=== PATIENT | male | born 1965 | race Caucasian/White ===

== ENCOUNTER 2017-07-19 14:08 | Emergency (ER) | payer BC ==
[~2017-07-19 14:08] MED LIST: ACE325 PO; ACE500 PO; CLON-294 PO; DIA10 PO; DIA5 PO; HYDR-4308 PO; IBUP800T37 PO; KET10 PO; LOR5/325 PO; METH-280 PO; NAPR500T31 PO; NO ROUTINE MEDS; OXYC-865 PO; OXYC-869 PO; OXYC1TAB54 PO; PER PO; QUET300T18 PO; SULF-198 PO
--- NOTE | 2017-07-19 14:36 | ER Report ---
History and Physical Time Seen By MD: 14:36 HPI/ROS CHIEF COMPLAINT: Right shoulder pain HISTORY OF PRESENT ILLNESS: 52-year-old male patient presents to emergency room with complaint of right shoulder pain. Patient states that he was getting up this morning and stretched and felt a pop in his right shoulder. He states since then he's noticed that the bicep has been loose. He believes that he is torn his biceps tendon. Patient states he recently had surgery to repair his biceps tendon within the last 6 months. He states that was done by Dr. Keane. Patient states that he has pain to the right shoulder. He states he is not taking any medication for this. He denies any weakness in the right hand. Patient states that he does have some numbness to the right hand. REVIEW OF SYSTEMS: Respiratory: No cough, no dyspnea. Cardiovascular: No chest pain, no palpitations. Gastrointestinal: No vomiting, no abdominal pain. Musculoskeletal: As noted above Allergies: Coded Allergies: tramadol HCl (Verified Allergy, Mild, HIVES, 07/19/17) morphine (Verified Allergy, Unknown, 07/19/17) Home Meds Reported Medications Clonazepam (CLONAZEPAM) 1 Mg Tablet 07/19/17 Discontinued Reported Medications Quetiapine Fumarate (SEROQUEL) 300 Mg Tablet, 300 MG PO QHS 06/21/14 Clonazepam (KLONOPIN) 2 Mg Tablet, 2 MG PO QHS, #7 TAB TAKE ONE TABLET BY MOUTH TWICE A DAY 06/21/14 Discontinued Scripts Naproxen (NAPROXEN) 500 Mg Tablet, 500 MG PO BID for 7 Days, #14 TAB Prov:MADELAINE ISBELL MD 01/19/17 Methocarbamol (METHOCARBAMOL) 750 Mg Tablet, 1500 MG PO QID Y for MUSCLE SPASMS for 7 Days, #30 TAB Prov:MADELAINE ISBELL MD 01/19/17 Oxycodone Hcl/Acetaminophen (PERCOCET 5-325 MG TABLET) 1 Each Tablet, 1 EACH PO Q4H for PAIN, #20 TAB 0 Refills Prov:DOROTA GARNER MD 03/31/16 Ibuprofen (IBUPROFEN) 800 Mg Tablet, 1 TAB PO Q8H Y for PAIN, #30 TAB Prov:HENNY GUARDADO MD 06/20/15 Oxycodone Hcl/Acetaminophen (PERCOCET 5-325 MG TABLET) 1 Each Tablet, 1 EACH PO Q4-6H Y for PAIN, #20 Prov:HENNY GUARDADO MD 06/20/15 Ibuprofen (IBUPROFEN) 800 Mg Tablet, 1 TAB PO Q8H, #30 Prov:ALONZO DALTON 11/14/14 Past Medical/Surgical History Patient has a past medical history of seizures, back fracture, necrotizing fasciitis. Patient has surgical history of back surgery, multiple surgeries arms, partial dictations of multiple fingers. Reviewed Nurses Notes: Yes Hx Smoking: Yes (PPD) Smoking Status: Current: Every Day Smoker Exposure to Second Hand Smoke?: Yes Hx Substance Use Disorder: No Hx Alcohol Use: No Constitutional Vital Sign - Last 24 Hours 07/19/17 07/19/17 14:10 15:55 Temp 97.6 Pulse 94 94 Resp 16 16 B/P (MAP) 129/90 118/84 (95) Pulse Ox 94 94 O2 Delivery Room Air Room Air Physical Exam General Appearance: The patient is alert, has no immediate need for airway protection and no current signs of toxicity. Respiratory: Chest is non tender, lungs are clear to auscultation. Cardiac: regular rate and rhythm Gastrointestinal: Abdomen is soft and non tender, no masses, bowel sounds normal. Musculoskeletal: Extremities have full range of motion and are non tender. Patient does have some laxity in the right bicep muscle, decreased sensation to the radial median and ulnar nerves, patient has full range of motion with his hand. Skin: No rashes or lesions. DIFFERENTIAL DIAGNOSIS: After history and physical exam differential diagnosis was considered for biceps tendon rupture, shoulder strain, shoulder fracture. Medical Decision Making EKG/Imaging Imaging HUMERUS RIGHT COMPARISONS: None. ADDITIONAL PERTINENT HISTORY: Arm pain FINDINGS: Osseous structures: Negative. Joint spaces: Negative. Surrounding soft tissues: Negative. IMPRESSION: Normal views of the right humerus. Report Dictated By: Germán Bojorquez MD at 07/19/2017 3:34 PM Report E-Signed By: Germán Bojorquez MD at 07/19/2017 3:35 PM SHOULDER MIN 2 VIEWS RIGHT COMPARISONS: None. ADDITIONAL PERTINENT HISTORY: Arm pain FINDINGS: Osseous structures: Negative. Joint spaces: Negative. Surrounding soft tissues: Negative. IMPRESSION: Normal views of the right shoulder. Report Dictated By: Germán Bojorquez MD at 07/19/2017 3:34 PM Report E-Signed By: Germán Bojorquez MD at 07/19/2017 3:34 PM ED Course/Re-evaluation ED Course Patient was admitted to an exam room, history of physical or obtained. Differential diagnoses were considered. On examination patient did have laxity in the proximal biceps. X-rays done of the right shoulder as well as right humerus. Those were negative aside anticipate. I believe that we have a rupture of the proximal biceps tendon. We will go ahead and place him in a sling and have him follow-up with [facility]. I discussed findings with patient. We will go ahead and have him continue with the hydrocodone he was prescribed on 07/14. He is follow-up with Dr. Keane,: Him on Friday to make an appointment. The patient verbalized understanding and agreement with plan. Decision to Disposition Date: July 19, 2017 Decision to Disposition Time: 15:52 Depart Departure Latest Vital Signs Vital Signs Date Time Temp Pulse Resp B/P (MAP) Pulse Ox O2 Delivery O2 Flow Rate FiO2 07/19/17 15:55 94 16 118/84 (95) 94 Room Air 07/19/17 14:10 97.6 Impression: Primary Impression: Biceps tendon rupture, proximal Condition: Improved Disposition: HOME OR SELF-CARE Referrals: CALVIN KEANE MD Patient Instructions: Tendon Rupture (ED) Additional Instructions: Wear sling 23/24 hours a day. Follow up with Dr. Keane at [facility]. Ice the shoulder 2-3 times a day for 10-15 minutes. Continue with your pain medication that was prescribed on 07/14. You may take Ibuprofen as needed for pain in addition to the pain medications. Wear the sling 23/24 hours a day until you see Dr. Keane. Problem Qualifiers Primary Impression: Biceps tendon rupture, proximal Encounter type: initial encounter Laterality: right Qualified Codes: S46.211A - Strain of muscle, fascia and tendon of other parts of biceps, right arm, initial encounter KRUPA HUSTON July 19, 2017 14:36
[2017-07-19] MEDS ORDERED: CLON-303 (14:38)
--- NOTE | 2017-07-19 15:39 | RADIOLOGY IMAGING REPORT ---
FACILITY: [facility] PATIENT NAME: Lonny Parada : 1965 MR: [id number] V: [id number] EXAM DATE: ORDERING PHYSICIAN: KRUPA HUSTON TECHNOLOGIST: Location: [facility] Patient: Lonny Parada : 1965 Visit/Account:[id number] Date of Sevice: 07/19/2017 HUMERUS RIGHT COMPARISONS: None. ADDITIONAL PERTINENT HISTORY: Arm pain FINDINGS: Osseous structures: Negative. Joint spaces: Negative. Surrounding soft tissues: Negative. IMPRESSION: Normal views of the right humerus. Report Dictated By: Germán Bojorquez MD at 07/19/2017 3:34 PM Report E-Signed By: Germán Bojorquez MD at 07/19/2017 3:35 PM WSN:[id number]
--- NOTE | 2017-07-19 15:39 | RADIOLOGY IMAGING REPORT ---
FACILITY: [facility] PATIENT NAME: Lonny Parada : 1965 MR: [id number] V: [id number] EXAM DATE: ORDERING PHYSICIAN: KRUPA HUSTON TECHNOLOGIST: Location: [facility] [place] Patient: Lonny Parada : 1965 Visit/Account:[id number] Date of Sevice: 07/19/2017 SHOULDER MIN 2 VIEWS RIGHT COMPARISONS: None. ADDITIONAL PERTINENT HISTORY: Arm pain FINDINGS: Osseous structures: Negative. Joint spaces: Negative. Surrounding soft tissues: Negative. IMPRESSION: Normal views of the right shoulder. Report Dictated By: Germán Bojorquez MD at 07/19/2017 3:34 PM Report E-Signed By: Germán Bojorquez MD at 07/19/2017 3:34 PM WSN:[id number]
[2017-07-19 15:55] VITALS: BP 118/84
== END 2017-07-19 15:58 | disposition home or self-care (01) ==
LOC: ER 14:39
DX: S46.211A Strain of muscle, fascia and tendon of other parts of biceps, right arm, initial encounter (principal); F17.210 Nicotine dependence, cigarettes, uncomplicated
CPT/HCPCS: 73030; 73060; 99283; A4565

== ENCOUNTER 2017-09-30 07:38 | Emergency (ER) | payer OTHER ==
[~2017-09-30 07:38] MED LIST changes: +CLON-304
--- NOTE | 2017-09-30 07:40 | ER Report ---
History and Physical Time Seen By MD: 07:39 HPI/ROS CHIEF COMPLAINT: Arm pain and leg pain HISTORY OF PRESENT ILLNESS: Patient is a 52-year-old male who lives in [place] but works in [place]. Today he was doing some niyah and was on a scissor lift. He states that he was moving materials off the bed of the sister lift when the otr tanker truck driver suddenly started to pull away. This caused him to twist and fall onto the roof landing on his right side. Patient also tried to brace himself using his right arm. Patient has a prior history of biceps tendon rupture to that arm. Review of the past medical record shows patient was seen for right biceps injury on July 19. He was referred back to Dr. Keane who initially done a biceps tendon repair in the past. He she did not follow up with Lakhwinder at that time as his symptoms improved. Patient currently also is complaining of pain that goes down the back of the left leg from the buttock area. He denies ever having a history of "sciatica". He states he feels some numbness down the back of the leg and lateral aspect of the thigh. Denies any incontinence. Patient is ambulatory. Patient complains of pain to the right anterior shoulder along the bicipital groove. REVIEW OF SYSTEMS: Respiratory: No cough, no dyspnea. Cardiovascular: No chest pain, no palpitations. Gastrointestinal: No vomiting, no abdominal pain. Musculoskeletal: Left-sided back pain, right shoulder and biceps pain. Allergies: Coded Allergies: tramadol HCl (Verified Allergy, Mild, HIVES, 07/19/17) Home Meds Active Scripts Cyclobenzaprine Hcl (CYCLOBENZAPRINE HCL) 10 Mg Tablet, 10 MG PO TID Y for MUSCLE SPASMS, #20 TAB 0 Refills TAKE 1 TABLET BY MOUTH THREE TIMES A DAY Prov:DOROTA GARNER MD 09/30/17 Hydrocodone Bit/Acetaminophen (HYDROCODON-ACETAMINOPHEN 5-325) 1 Each Tablet, 1 EACH PO Q4-6H Y for PAIN, #12 TAB 0 Refills TAKE ONE TABLET BY MOUTH EVERY 4-6 HOURS NEEDED FOR PAIN Prov:DOROTA GARNER MD 09/30/17 Reported Medications Quetiapine Fumarate (SEROQUEL) 300 Mg Tablet, 300 MG PO HS 09/30/17 Discontinued Reported Medications Clonazepam (CLONAZEPAM) 1 Mg Tablet 07/19/17 Past Medical/Surgical History Past medical history for right biceps tendon repair. Hx Smoking: Yes (PPD) Smoking Status: Current: Every Day Smoker Exposure to Second Hand Smoke?: Yes Hx Substance Use Disorder: No Hx Alcohol Use: No Constitutional Vital Sign - Last 24 Hours 09/30/17 07:41 Pulse 112 Resp 18 B/P (MAP) 134/90 Pulse Ox 95 O2 Delivery Room Air Physical Exam General Appearance: The patient is alert, has no immediate need for airway protection and no current signs of toxicity. [ ] Eyes: Pupils equal and round no injection. Musculoskeletal: Neck: Neck is supple and non tender. Examination of the right upper extremity reveals tenderness to the bicipital groove with initiation of speed's test. Patient has a normal except squeeze test. Examination of the Right hand reveals no acute deformity. The patient is able to give a thumbs up sign, is able to make an okay sign, and is able to AB duct the fingers. Sensation is intact over the dorsal 1st web space, the volar aspect of the 2nd finger, and the volar aspect of the 5th finger. Capillary refill is brisk. Examination of the left lower extremity reveals a normal 1st test. Patient has difficulty with extension of the left lower extremity at the hip. Patient also tender along the posterior aspect of the left paraspinal muscle group. Medical Decision Making ED Course/Re-evaluation ED Course 09/30/2017 8:08:29 am plan at this time will be oral pain medication we will also x-ray of the lumbar spine with 4 views. Suspect patient has noticed along the biceps. We'll refer her back to his orthopedic physician after discharge. Decision to Disposition Date: Sep 30, 2017 Decision to Disposition Time: 08:34 Depart Departure Latest Vital Signs Vital Signs Date Time Temp Pulse Resp B/P (MAP) Pulse Ox O2 Delivery O2 Flow Rate FiO2 09/30/17 07:41 112 18 134/90 95 Room Air Core Temperature (Celsius): 36.45 Impression: Primary Impression: Bicipital tendinitis of right shoulder Additional Impression: Sciatica Condition: Improved Disposition: HOME OR SELF-CARE Referrals: CALVIN KEANE MD 1 Week New Scripts Cyclobenzaprine Hcl (CYCLOBENZAPRINE HCL) 10 Mg Tablet 10 MG PO TID Y for MUSCLE SPASMS, #20 TAB 0 Refills TAKE 1 TABLET BY MOUTH THREE TIMES A DAY Prov: DOROTA GARNER MD 09/30/17 Hydrocodone Bit/Acetaminophen (HYDROCODON-ACETAMINOPHEN 5-325) 1 Each Tablet 1 EACH PO Q4-6H Y for PAIN, #12 TAB 0 Refills TAKE ONE TABLET BY MOUTH EVERY 4-6 HOURS NEEDED FOR PAIN Prov: DOROTA GARNER MD 09/30/17 Departure Forms: ER Transition Record, Medications Reconciliation, Off Work/ School Form, School or Work Release?: Work Number of days to be released: 2 Patient Portal Information Patient Instructions: Muscle Strain (ED), Sciatica (DC) Problem Qualifiers Additional Impression: Sciatica Laterality: left Qualified Codes: M54.32 - Sciatica, left side DOROTA GARNER MD Sep 30, 2017 07:39
[2017-09-30 07:41] VITALS: BP 134/90
[2017-09-30] MEDS ORDERED: QUET300T18 PO (07:51)
[2017-09-30] MEDS ORDERED: APAP/HYDROCODONE 325/5 TAB PO ONE (08:05)
[2017-09-30] MEDS ORDERED: LOR5/325 PO (08:36)
[2017-09-30] MEDS ORDERED: CYCL10TA29 PO (08:36)
--- NOTE | 2017-09-30 08:55 | RADIOLOGY IMAGING REPORT ---
FACILITY: [facility] PATIENT NAME: Lonny Parada : 1965 MR: [id number] V: [id number] EXAM DATE: ORDERING PHYSICIAN: DOROTA GARNER TECHNOLOGIST: Location: [facility] Patient: Lonny Parada : 1965 Visit/Account:[id number] Date of Sevice: 09/30/2017 Exam type: LUMBAR SPINE 4 VIEWS History: sciatica Comparison: CT lumbar and thoracic spine July 13, 2014. Findings: Five views of the lumbar spine were submitted. There are postsurgical changes from posterior lumbar interbody fusion at L3 and L4 with bilateral pedicle screws and intervertebral support cage.. There also appears to be intervertebral support cage L4-5. There is straightening of normal lumbar lordosi s. There is moderate disc space narrowing at L2-3 with sclerosis of the adjacent endplates it appear s similar to the prior CT. There is mild disc space narrowing L5-S1 also appear similar. This mild loss of height of the T10-11 and 12 vertebral bodies that appears relatively unchanged compared the p rior CT. No evidence of acute fractures or subluxations identified. IMPRESSION: 1. Postoperative changes of the lumbar spine and additional spondylotic changes as described above. The findings are relatively unchanged when compared to the prior CTs of the thoracic and lumbar spin e July 13, 2014 Report Dictated By: Marlene Lala MD at 09/30/2017 8:41 AM Report E-Signed By: Marlene Lala MD at 09/30/2017 8:50 AM WSN:[email or web address]
== END 2017-09-30 08:46 | disposition home or self-care (01) ==
LOC: ER 07:47
DX: M75.21 Bicipital tendinitis, right shoulder (principal); M54.42 Lumbago with sciatica, left side; F17.200 Nicotine dependence, unspecified, uncomplicated
CPT/HCPCS: 72120; 99283

== ENCOUNTER 2017-10-26 08:58 | Emergency (ER) | payer SELFPAY ==
[~2017-10-26 08:58] MED LIST changes: +CYCL10TA29 PO
[2017-10-26] MEDS ORDERED: DEXAMETHASONE SOD PHOS 10MG/ML IM ONE (09:10)
[2017-10-26] MEDS ORDERED: KETOROLAC 60 MG/2 ML VIAL IM ONE (09:10)
--- NOTE | 2017-10-26 09:29 | ER Report ---
History and Physical Time Seen By MD: 09:29 Hx. of Stated Complaint: pt reports he woke up 2 weeks ago with low back pain, reports shooting pain down L leg HPI/ROS 52-year-old male with history of multiple traumas including back surgery in the past. States he woke up this morning, and when he twisted sideways from a seated position on his bed he felt a sharp and acute pain which started in his right buttocks area and radiated down to his right knee and subsequently his right foot. He is able to ambulate. No surgical manipulation of his back recently. No current IV drug use. No fever chills. No changes in bowel or bladder. Remainder of the 14 system rev: Yes Allergies: Coded Allergies: tramadol HCl (Verified Allergy, Mild, HIVES, 10/26/17) Home Meds Active Scripts Ketorolac Tromethamine (KETOROLAC TROMETHAMINE) 10 Mg Tab, 10 MG PO Q6H PRN for PAIN, #12 TAB 0 Refills Prov:CINDI GREEN MD 10/26/17 Reported Medications Quetiapine Fumarate (SEROQUEL) 300 Mg Tablet, 300 MG PO HS 09/30/17 Discontinued Scripts Cyclobenzaprine Hcl (CYCLOBENZAPRINE HCL) 10 Mg Tablet, 10 MG PO TID PRN for MUSCLE SPASMS, #20 TAB 0 Refills TAKE 1 TABLET BY MOUTH THREE TIMES A DAY Prov:DOROTA GARNER MD 09/30/17 Hydrocodone Bit/Acetaminophen (HYDROCODON-ACETAMINOPHEN 5-325) 1 Each Tablet, 1 EACH PO Q4-6H PRN for PAIN, #12 TAB 0 Refills TAKE ONE TABLET BY MOUTH EVERY 4-6 HOURS NEEDED FOR PAIN Prov:DOROTA GARNER MD 09/30/17 Hx Smoking: Yes (PPD) Smoking Status: Current: Every Day Smoker Exposure to Second Hand Smoke?: Yes Hx Substance Use Disorder: No Hx Alcohol Use: No Constitutional Vital Sign - Last 24 Hours 10/26/17 10/26/17 10/26/17 10/26/17 09:00 09:06 09:13 09:28 Temp 97.0 Pulse 82 82 96 Resp 18 B/P (MAP) 143/78 143/78 (99) Pulse Ox 96 95 97 O2 Delivery Room Air 10/26/17 10/26/17 10/26/17 10/26/17 09:30 09:43 10:13 10:28 Pulse 92 88 98 B/P (MAP) 127/105 (112) Pulse Ox 95 95 97 10/26/17 10/26/17 10/26/17 10:30 10:35 10:46 Pulse 80 B/P (MAP) 132/84 (100) 136/85 (102) Pulse Ox 92 Physical Exam General Appearance: The patient is alert, has no immediate need for airway protection and no current signs of toxicity. Eyes: Pupils equal and round no injection. Respiratory: Chest is non tender, lungs are clear to auscultation. Cardiac: RRR, no m/r/g Gastrointestinal: Abdomen is soft and non tender, no masses, bowel sounds normal. Musculoskeletal: Mild tenderness to palpation of the right paraspinal lumbar region. Continued tenderness to palpation of the sciatic area of his right buttocks. No midline spinal tenderness to palpation. Neck: Neck is supple and non tender. Extremities have full range of motion and are non tender. Skin: No rashes or lesions. DIFFERENTIAL DIAGNOSIS: After history and physical exam differential diagnosis was considered for infection, spinal injury, muscle spasm, intra-abdominal pathology, kidney stone Medical Decision Making EKG/Imaging Imaging X-ray: lumbar spine was obtained. I viewed the images myself on the PACS system. My interpretation of the images is: No acute changes or fractures. The radiologist interpretation had no clinically significant variation from this interpretation. ED Course/Re-evaluation ED Course Uncomplicated muscle spasm of the right paraspinal lumbar region and sciatica after twisting from a seated position. Given his extent of subjective pain as well as previous surgery, lumbar x-rays were obtained. X-ray showed no acute findings. I gave him Toradol, a muscle relaxer, and a steroid for the radiculopathy. I also subsequently placed a lidocaine patch in the region of maximal discomfort. I discharged him with a prescription for Toradol. Decision to Disposition Date: Oct 26, 2017 Decision to Disposition Time: 10:40 Depart Departure Latest Vital Signs Vital Signs Date Time Temp Pulse Resp B/P (MAP) Pulse Ox O2 Delivery O2 Flow Rate FiO2 10/26/17 10:46 136/85 (102) 10/26/17 10:35 80 92 10/26/17 09:00 97.0 18 Room Air Core Temperature (Celsius): 36.45 Impression: Primary Impression: Back muscle spasm Condition: Improved Disposition: HOME OR SELF-CARE New Scripts Ketorolac Tromethamine (KETOROLAC TROMETHAMINE) 10 Mg Tab 10 MG PO Q6H PRN for PAIN, #12 TAB 0 Refills Prov: CINDI GREEN MD 10/26/17 Patient Instructions: Acute Low Back Pain (ED) CINDI GREEN MD Oct 26, 2017 09:29
[2017-10-26] MEDS ORDERED: DIAZEPAM 5 MG TAB PO ONE (09:35)
[2017-10-26] MEDS ORDERED: CYCLOBENZAPRINE HCL 10 MG TAB PO ONE (09:45)
--- NOTE | 2017-10-26 10:16 | RADIOLOGY IMAGING REPORT ---
FACILITY: [facility] [place] PATIENT NAME: Lonny Parada : 1965 MR: [id number] V: [id number] EXAM DATE: ORDERING PHYSICIAN: CINDI GREEN TECHNOLOGIST: Location: [facility] Patient: Lonny Parada : 1965 Visit/Account:[id number] Date of Sevice: 10/26/2017 Three-view lumbar spine COMPARISONS: September 30, 2017 ADDITIONAL PERTINENT HISTORY: Previous surgery with acute pain. No history of fall FINDINGS: Postoperative changes: Patient status post posterior interbody fusion of L3-L4 and L4-L5. Previous la minectomies at L3-L4 and L4-L5. Vertebral body heights and alignments: Mild loss of height at the level of T12. Vertebral bodies: Mild compression fracture which is stable from previous exam at the level of T12. M ild anteriorly directed osteophytes at multiple levels. Facet hypertrophic changes involving the lowe r lumbar spine. Disc spaces: Solid bony fusion across the disc spaces at L3-L4 and L4-L5. Disc space narrowing at L2- L3 and L5-S1. Visualized bony pelvis: Negative. Surrounding soft tissues: Negative. IMPRESSION: 1. Stable postoperative and spondylitic change when compared to previous exam. 2. No new bony abnormalities. 3. Stable mild compression fracture at T12. Report Dictated By: Germán Bojorquez MD at 10/26/2017 10:10 AM Report E-Signed By: Germán Bojorquez MD at 10/26/2017 10:12 AM WSN:[id number]
[2017-10-26] MEDS ORDERED: LIDOCAINE 5% PATCH TP SCH (10:30)
[2017-10-26] MEDS ORDERED: KET10 PO (10:41)
[2017-10-26 10:46] VITALS: BP 136/85
[2017-10-26] MEDS ORDERED: PATCH REMOVAL 1 EA TOP SCH (21:00)
== END 2017-10-26 10:45 | disposition home or self-care (01) ==
LOC: ER 09:27
DX: M62.830 Muscle spasm of back (principal)
CPT/HCPCS: 72100; 96372; 99283; J1100; J1885